=== PATIENT | female | born 1945 | race Hispanic/Latino ===

== ENCOUNTER → 2024-10-26 | Outpatient (CLI) | payer MEDICARE ==
--- NOTE | 2024-10-26 10:55 | HMCIMG ---
Exam Type: MR KNEE LEFT WO Clinical Information: S83.209A Unspecified tear of unspecified meniscus, current injury, unspecif Comparison: None Technique: MRI of the knee was done with triplane localizer, axial T2 as well as sagittal proton density T2, T1, and fat-saturated T2. In addition, coronal T1 and coronal fat-saturated spin-echo sequences are available for review. FINDINGS: There is a complex tear of the posterior horn of the medial meniscus with inferior articular surface involvement. No other meniscal tears are present. There is a large subchondral lesion involving the medial tibial plateau measuring 26 mm transverse diameter with depression of at least 9 mm. The fragment is detached. There is a joint effusion. No effusions are identified. No bony abnormalities are seen. The articular cartilage is preserved. The cruciate and collateral ligaments are intact. No periarticular soft tissue abnormalities are seen. There are no other gross abnormalities. IMPRESSION: Complex tear posterior horn medial meniscus with inferior articular surface involvement. 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
== END | disposition home or self-care (01) ==
LOC: RAH 09:18
PROVIDERS: ATTEND Orthopaedic Surgery
DX: S83.232A Complex tear of medial meniscus, current injury, left knee, initial encounter (principal); M93.262 Osteochondritis dissecans, left knee; X58.XXXA Exposure to other specified factors, initial encounter; Y93.89 Activity, other specified; Y92.89 Other specified places as the place of occurrence of the external cause; Y99.8 Other external cause status
CPT/HCPCS: 73721